=== PATIENT | male | born 1980 | race Two or more races ===

== ENCOUNTER 2022-08-28 18:00 | Emergency (ER) | payer MEDICAID ==
[~2022-08-28] VITALS: Ht 180.3 cm; Wt 79.4 kg
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
[2022-08-28] MEDS ORDERED: KETOROLAC TROMETHAMINE INJ 30 MG/ML VIAL ONE (19:28)
[2022-08-28] MEDS ORDERED: CYCLOBENZAPRINE 10 MG TABLET ONE (19:28)
[2022-08-28] MEDS ORDERED: CYCLOBENZAPRINE 10 MG TABLET PO ONE (19:30)
[2022-08-28] MEDS ORDERED: KETOROLAC TROMETHAMINE INJ 60 MG/2 ML VIAL IM ONE (19:30)
--- NOTE | 2022-08-28 19:33 | NUR ---
XRAY AT BEDSIDE
[2022-08-28] MEDS ORDERED: CYCL10TA9 PO (20:10)
[2022-08-28] MEDS ORDERED: IBUP-1955 PO (20:10)
--- NOTE | 2022-08-28 20:30 | NUR ---
Patient discharged to home in stable condition. Written and verbal after care instructions given. Patient verbalizes understanding of instruction.
[2022-08-28 20:31] VITALS: BP 129/76
== END 2022-08-28 20:32 | disposition home or self-care (01) ==
LOC: ER 18:02
DX: S76.011A Strain of muscle, fascia and tendon of right hip, initial encounter (principal); S46.911A Strain of unspecified muscle, fascia and tendon at shoulder and upper arm level, right arm, initial encounter; Z79.899 Other long term (current) drug therapy; V03.90XA Pedestrian on foot injured in collision with car, pick-up truck or van, unspecified whether traffic or nontraffic accident, initial encounter; Y93.89 Activity, other specified; Y92.89 Other specified places as the place of occurrence of the external cause; Y99.8 Other external cause status
CPT/HCPCS: 99284; 96372; 72100; 73080; 73502; 73030; 73110; J1885